=== PATIENT | female | born 2005 | race Caucasian/White ===

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

== ENCOUNTER 2024-03-15 08:36 | Emergency (ER) | payer MEDICAID, SELFPAY ==
[2024-03-15 08:59] VITALS: BP 131/100; PULSE 85; RESP 20; TEMP 36.6; O2SAT 100; BMI 33.5
--- NOTE | 2024-03-15 09:02 | USR_ITS ---
PROCEDURE INFORMATION: Exam: US First Trimester, Transabdominal and US , Transvaginal Exam date and time: 03/15/2024 9:34 AM Age: 18 years old Clinical indication: Lmp or gestational age (in weeks): 6w 5d per US; Antepartum complications; Bleeding; ; Additional info: Threatened miscarriage LABS AND CLINICAL REPORTS: Gestational age (Established): 11 w 4 d Estimated due date (Established): 09/30/2024 TECHNIQUE: Imaging protocol: Real-time transabdominal obstetrical ultrasound of the maternal pelvis and a first trimester , less than 14 weeks 0 days, with image documentation. Transvaginal imaging was used for better evaluation of the fetus, adnexa, and/or cervix. COMPARISON: US gall bladder [id number] 05/09/2022 11:30 AM FINDINGS: GESTATION: Gestation: Yolk sac measures 2.5 mm. Single intrauterine gestational sac. Embryonic/ heart rate: 124 bpm Extra-embryonic membranes/Placenta: There is a small amount subchorionic bleed measuring 1 x 0.6 x 0.9 cm. Amniotic/Chorionic fluid: Amniotic and extra-amniotic fluid are normal for gestational age. BIOMETRY: Gestational age (AUA): 6 weeks and 5 days. [place] rump length (CRL): 0.82 cm. MATERNAL: Uterus: Unremarkable. Cervix: Cervical length measures 3.1 cm. Right ovary/adnexa: The right ovary measures 1.6 x 2.9 x 1.6 cm. Left ovary/adnexa: The left ovary measures 2.5 x 1.9 x 2.2 cm. There is a 1.7 x 1.8 x 1.4 left ovarian cyst. Intraperitoneal space: No intraperitoneal free fluid. US/US OB <=14 wk fetus w transvag IMPRESSION: 1. Small amount of subchorionic bleed. 2. Intrauterine gestational sac with documented heart rate of 124 bpm.
--- NOTE | 2024-03-15 09:02 | W.ED.GENADLT ---
HPI - General Adult General: Chief complaint: Vaginal Bleeding Stated complaint: Bleeding 11 weeks preg Time Seen by Provider: 03/15/24 08:42 Source: patient Mode of arrival: ambulatory Limitations: no limitations History of Present Illness: 18-year-old female states she is currently she states she is anywhere from 8 to 12 weeks is unsure of the dates she has not had an ultrasound. States she had some cramping last night and some minimal bleeding this morning she states it is more spotting denies passing any tissue or clots. She denies any fevers. This is her first . Associated symptoms: Deny chest pain, dyspnea, headache(s), nausea, rash or vomiting Related Data Previous Rx's Medication Instructions Recorded docosanol 10 % topical cream 1 applic topical DAILY PRN cold 05/14/23 (Abreva) sore #2 grams drospirenone 3 mg-ethinyl 1 tab PO DAILY #84 tabs 05/14/23 estradiol 0.02 mg tablet (ADRIANA (28)) methylphenidate HCl 36 mg 36 mg PO DAILY 30 days #30 tabs 05/14/23 tablet,extended release 24 hr sulfamethoxazole 800 1 tab PO BID #14 tabs 05/14/23 mg-trimethoprim 160 mg tablet (Bactrim DS) methocarbamol 750 mg tablet 750 mg PO Q6H PRN spasms #20 tabs 11/03/23 naproxen 500 mg tablet (Naprosyn) 500 mg PO BID PRN pain #20 tabs 11/03/23 Allergies Allergy/AdvReac Type Severity Reaction Status Date / Time amoxicillin Allergy nausea Verified 03/15/24 09:05 Penicillins Allergy nausea Verified 03/15/24 09:05 Review of Systems Const: Denies: fever(s), chills, body aches or change in appetite ENMT: Denies: throat pain or dental pain Card: Denies: chest pain Resp: Denies: dyspnea GI: Reports: abdominal pain; Denies: nausea, vomiting or diarrhea : Reports: vaginal bleeding; Denies: dysuria Musc: Denies: neck pain or back pain Skin/Breast: Denies: rash Neuro: Denies: headache(s) PFSH ED PFSH: Medical History No pertinent family history Surgical History No pertinent past surgical history Social History Smoking and tobacco/nicotine status: never used tobacco/nicotine Second hand smoke exposure: No Alcohol intake: never Substance/Drug Use: never Adopted: No Caregiver/support person: No service: No Current occupational status: employed Current occupational exposures/hazards: No Sexually active: No Do you think of yourself as: Straight/Heterosexual Current gender identity: Female Female Reproductive History: Spontaneous abortions: No Physical Exam Const: COMMON NORMALS: no acute distress, patient oriented x3 and healthy appearing HENMT: COMMON NORMALS: normocephalic and atraumatic HEAD & SCALP: normocephalic and atraumatic Neck/C-Spine: COMMON NORMALS: full ROM and supple Chest: COMMONS NORMALS: normal inspection of the chest Resp: COMMON NORMALS: normal respiratory effort Cardio: COMMON NORMALS: regular rate, regular rhythm and No murmurs present (Cardio) RATE: regular rate RHYTHM: regular rhythm GI: COMMON NORMALS: Normal to inspection, nondistended, normoactive bowel sounds present, Soft to palpation, non-tender and no masses PALPATION: Yes Soft to palpation Extremity: COMMON NORMALS: normal to inspection and full ROM Neuro: COMMON NORMALS: patient oriented x3, moves all extremities and no focal motor deficits Psych: COMMON NORMALS: mental status grossly normal, Normal thought process present and cooperative THOUGHT PROCESS: Normal thought process present Skin: COMMON NORMALS: no rashes or lesions noted and no wounds GENERAL SKIN EXAM: no rashes or lesions noted Course Vital Signs: Vital signs: Vital Signs Temperature 97.8 F 03/15/24 08:59 Pulse Rate 85 03/15/24 08:59 Respiratory Rate 20 H 03/15/24 08:59 Blood Pressure 131/100 03/15/24 08:59 Pulse Oximetry 100 03/15/24 08:59 Oxygen Delivery Me thod Room Air 03/15/24 08:59 [facility] [place] - General Adult Medical Decision Making Patient presents here with a threatened miscarriage ultrasound did show an IUP she is well-appearing here she stable for discharge she is follow-up with OB next week return if worsening. Medical Records I reviewed the patient's medical records. Lab Data I reviewed the patient's lab results. 03/15/24 09:46 Radiology Impressions Obstetrics Ultrasound 03/15/24 09:02 IMPRESSION: 1. Small amount of subchorionic bleed. 2. Intrauterine gestational sac with documented heart rate of 124 bpm. Laboratory Results WBC 8.76 10^3/uL (4.5-13.0) 03/15/24 09:46 RBC 4.61 10^6/uL (3.85-5.65) 03/15/24 09:46 Hgb 13.20 g/dL (12.4-14.8) 03/15/24 09:46 Hct 40.1 % (36-47) 03/15/24 09:46 MCV 87.0 fl (85-98) 03/15/24 09:46 MCH 28.6 pg (27-33) 03/15/24 09:46 MCHC 32.9 g/dL (30-55) 03/15/24 09:46 RDW 13.5 % (12.1-15.1) 03/15/24 09:46 Plt Count 311 10^3/cmm (157-399) 03/15/24 09:46 MPV 10.3 fL (7.4-10.4) 03/15/24 09:46 Neut % (Auto) 72.7 % 03/15/24 09:46 Lymph % (Auto) 20.0 % 03/15/24 09:46 [place] % (Auto) 6.3 % 03/15/24 09:46 Eos % (Auto) 0.1 % 03/15/24 09:46 Baso % (Auto) 0.6 % 03/15/24 09:46 Neut # (Auto) 6.37 10^3/uL (1.8-8.0) 03/15/24 09:46 Lymph # (Auto) 1.8 10^3/uL (1.5-6.5) 03/15/24 09:46 [place] # (Auto) 0.6 10^3/uL (0.2-0.9) 03/15/24 09:46 Eos # (Auto) 0.0 10^3/uL (0.0-0.8) 03/15/24 09:46 Baso # (Auto) 0.1 10^3/uL (0.0-0.1) 03/15/24 09:46 Nucleated RBC % (auto) 0 % 03/15/24 09:46 Nucleated RBCs # 0.0 /100WBC 03/15/24 09:46 Ser , Semi-Qnt 81072.00 mIU/mL 03/15/24 09:46 Blood Type B Positive 03/15/24 09:46 Rho(D) Type Rh positive 03/15/24 09:46 All radiology interpretation(s) finalized by discharge Discharge Plan Discharge Patient Disposition: Home Clinical Impression: Threatened miscarriage Condition: Stable Prescriptions: No Action methylphenidate HCl 36 mg tablet extended release 24hr 36 mg PO DAILY 30 Days Qty: 30 0RF drospirenone-ethinyl estradiol [ADRIANA (28)] 3-0.02 mg tablet 1 tab PO DAILY Qty: 84 3RF docosanol [Abreva] 10 % cream 1 applic topical DAILY PRN (Reason: cold sore) Qty: 2 5RF Rx Instructions: Apply small amount to cold sore prior to bed. Use one time daily until cleared. sulfamethoxazole-trimethoprim [Bactrim DS] 800-160 mg tablet 1 tab PO BID Qty: 14 0RF methocarbamol 750 mg tablet 750 mg PO Q6H PRN (Reason: spasms) Qty: 20 0RF Naprosyn 500 mg tablet 500 mg PO BID PRN (Reason: pain) Qty: 20 0RF Discharge Orders: Discharge ED (Routine); Ordered 03/15/24 Ordered By: Jai Frias Referrals: Marilu Diaz MD [Primary Care Provider] - 4-7 days Discharge Diet: Advance as tolerated Discharge Activity: Resume usual activity Patient Instructions: Threatened Miscarriage (ED) Coding Level of Care Code ED Dean for Boom Holland
[2024-03-15 09:54] LABS: Basophils # 0.1 10^3/uL (0.0-0.1); Basophils % 0.6 %; Eosinophils % 0.1 %; Hematocrit 40.1 % (36-47); Lymphocytes # 1.8 10^3/uL (1.5-6.5); Mean Corpuscular HGB Conc 32.9 g/dL (30-55); Mean Corpuscular Hemoglobin 28.6 pg (27-33); Mean Platelet Volume 10.3 fL (7.4-10.4); Monocytes # 0.6 10^3/uL (0.2-0.9); Monocytes % 6.3 %; Neutrophils # 6.37 10^3/uL (1.8-8.0); Neutrophils % 72.7 %; Nucleated Red Blood Cells % 0 %; Platelet Count 311 10^3/cmm (157-399); Red Blood Count 4.61 10^6/uL (3.85-5.65); Red Cell Distribution Width 13.5 % (12.1-15.1); White Blood Count 8.76 10^3/uL (4.5-13.0)
== END 2024-03-15 10:58 | disposition home or self-care (01) ==
PROVIDERS: Emergency Provider Emergency Medicine; PCP Family Medicine
DX: O20.0 Threatened abortion (principal); Z3A.01 Less than 8 weeks gestation of pregnancy
CPT/HCPCS: 36415; 76801; 76817; 84702; 85025; 86850; 86900; 99284

== ENCOUNTER 2024-09-09 20:05 | Outpatient (CLI) | payer MEDICAID, SELFPAY ==
[2024-09-09 20:05] VITALS: BMI 33.2
[2024-09-09 20:21] VITALS: BP 115/63; PULSE 118; TEMP 36.1
[2024-09-09 20:36] VITALS: BP 114/71; PULSE 105
[2024-09-09 20:48] VITALS: TEMP 36.1
[2024-09-09 20:49] VITALS: BP 128/67; PULSE 90
[2024-09-09 20:59] VITALS: BP 128/67; PULSE 90; RESP 16; TEMP 36.1; O2SAT 100
== END 2024-09-09 20:59 | disposition home or self-care (01) ==
LOC: OPOB 20:12 → OBGYN 20:14
PROVIDERS: Visit Provider Family Medicine
DX: O26.899 Other specified pregnancy related conditions, unspecified trimester (principal); Z3A.00 Weeks of gestation of pregnancy not specified; Z91.81 History of falling
CPT/HCPCS: 59025; 99211

== ENCOUNTER 2024-10-06 20:10 | Outpatient (CLI) | payer MEDICAID, SELFPAY ==
[2024-10-06 20:10] VITALS: BMI 34.8
[2024-10-06 20:37] VITALS: BP 126/71; PULSE 85
[2024-10-06 20:52] VITALS: BP 133/64; PULSE 80
[2024-10-06 21:07] VITALS: BP 130/80; PULSE 86
[2024-10-06 21:22] VITALS: BP 115/78; PULSE 90
[2024-10-06 21:25] VITALS: BP 126/74; PULSE 82; TEMP 36.6; O2SAT 99
[2024-10-06 21:33] VITALS: BP 126/74; PULSE 82
== END 2024-10-06 21:40 | disposition home or self-care (01) ==
LOC: OPOB 20:23 → OBGYN 20:24
PROVIDERS: PCP Family Medicine; Visit Provider Family Medicine
DX: O26.899 Other specified pregnancy related conditions, unspecified trimester (principal); Z3A.00 Weeks of gestation of pregnancy not specified; Z91.81 History of falling
CPT/HCPCS: 59025; 99211

== ENCOUNTER 2024-10-20 11:40 | Outpatient (CLI) | payer MEDICAID, SELFPAY ==
[2024-10-20 11:48] VITALS: BMI 35.6
[2024-10-20 12:15] LABS: Basophils % 0.3 %; Eosinophils % 0.2 %; Hematocrit 31.5 % (36-47); Lymphocytes # 1.9 10^3/uL (1.5-6.5); Mean Corpuscular HGB Conc 32.7 g/dL (30-55); Mean Corpuscular Hemoglobin 26.8 pg (27-33); Mean Corpuscular Volume 81.8 fl (85-98); Mean Platelet Volume 11.2 fL (7.4-10.4); Monocytes # 0.7 10^3/uL (0.2-0.9); Monocytes % 7.3 %; Neutrophils # 7.16 10^3/uL (1.8-8.0); Neutrophils % 72.1 %; Nucleated Red Blood Cells % 0 %; Platelet Count 272 10^3/cmm (157-399); Red Blood Count 3.85 10^6/uL (3.85-5.65); Red Cell Distribution Width 13.4 % (12.1-15.1); White Blood Count 9.93 10^3/uL (4.5-13.0)
[2024-10-20 12:17] LABS: Bilirubin Urine Negative (Negative); Blood Urine Negative (Negative); Glucose Urine UA Negative (Normal); Ketones Urine Negative (Negative); Leukocyte Esterase Urine Trace (Negative); Nitrate Urine Negative (Negative); Protein Urine Negative (Negative); Specific Gravity, Urine 1.015 (1.005-1.030); Urine Appearance Cloudy (CLEAR); Urine Color Yellow (Yellow); pH Urine 6.5 (5-7)
[2024-10-20 12:18] VITALS: BP 139/80; PULSE 72
[2024-10-20 12:19] LABS: Add Urine Microscopic? YES; Bacteria Urine 2+ /hpf; Hyaline Casts Urine 0.81 /lpf; RBC Urine 0-2 /hpf (0-2)
[2024-10-20 12:33] LABS: Add Urine Culture? No
[2024-10-20 12:34] VITALS: BP 136/80; PULSE 76
[2024-10-20 12:36] LABS: Urine Creatinine 138 mg/dL (28-217); Urine Protein Random 14 mg/dL
[2024-10-20 12:44] LABS: Alanine Aminotransferase < 5 U/L (0-33); Albumin Level 3.4 g/dL (3.5-5.2); Alkaline Phosphatase 189 U/L (35-105); Aspartate Amino Transferase 12 U/L (0-32); Blood Urea Nitrogen 6 mg/dL (6-20); Calcium 8.9 mg/dL (8.5-10.5); Carbon Dioxide 20 mmol/L (22-29); Chloride 104 mmol/L (98-107); Globulin 3.3 g/dL (1.3-4.6); Glomerular Filtration Rate 158.9 mL/min (90-130); Glucose 81 mg/dL (65-115); Osmolality Calculated 277 mOsm/kg (285-295); Sodium 135 mmol/L (136-145); Total Bilirubin 0.2 mg/dL (0.15-1.2); Total Protein 6.7 g/dL (6.6-8.7); Uric Acid 5.1 mg/dL (2.4-5.7)
[2024-10-20 12:48] VITALS: BP 129/75; PULSE 74
[2024-10-20 13:03] VITALS: BP 130/76; PULSE 74
[2024-10-20 13:18] VITALS: BP 134/79; PULSE 78
[2024-10-20 13:30] VITALS: BP 134/79; PULSE 78; RESP 17
== END 2024-10-20 13:30 | disposition home or self-care (01) ==
LOC: OPOB 11:44 → OBGYN 11:45
PROVIDERS: PCP Family Medicine; Visit Provider Family Medicine
DX: O26.899 Other specified pregnancy related conditions, unspecified trimester (principal); Z3A.00 Weeks of gestation of pregnancy not specified
CPT/HCPCS: 36415; 59025; 80053; 81001; 82570; 84156; 84550; 85025; 99211

== ENCOUNTER 2024-11-03 09:45 | Inpatient (IN) | payer MEDICAID, SELFPAY ==
[2024-11-03] VITALS (75 sets, daily range): BP systolic 106–175; BP diastolic 53–99; PULSE 58–114; RESP 15; O2SAT 97–100; BMI 35.6
[2024-11-03 10:36] LABS: Basophils % 0.4 %; Eosinophils % 0.1 %; Hematocrit 32.4 % (36-47); Lymphocytes # 1.8 10^3/uL (1.5-6.5); Lymphocytes % 16.1 %; Mean Corpuscular HGB Conc 32.4 g/dL (30-55); Mean Corpuscular Hemoglobin 26.1 pg (27-33); Mean Corpuscular Volume 80.6 fl (85-98); Mean Platelet Volume 11.7 fL (7.4-10.4); Monocytes # 0.8 10^3/uL (0.2-0.9); Monocytes % 6.9 %; Neutrophils # 8.35 10^3/uL (1.8-8.0); Neutrophils % 75.3 %; Nucleated Red Blood Cells % 0 %; Platelet Count 306 10^3/cmm (157-399); Red Blood Count 4.02 10^6/uL (3.85-5.65); Red Cell Distribution Width 13.8 % (12.1-15.1); White Blood Count 11.09 10^3/uL (4.5-13.0)
[2024-11-03 10:44] LABS: Bacteria Urine 1+ /hpf; Hyaline Casts Urine 0-4 /lpf; RBC Urine 0-2 /hpf (0-2)
[2024-11-03 10:46] LABS: Add Urine Microscopic? YES; Blood Urine Neg (Negative); Glucose Urine UA Norm (Normal); Ketones Urine Negative (Negative); Nitrate Urine Negative (Negative); Protein Urine Trace (Negative); Urine Appearance Clear (CLEAR); Urine Color Yellow (Yellow); pH Urine 7 (5-7)
[2024-11-03 10:47] LABS: Add Urine Culture? No; Bilirubin Urine Neg (Negative); Leukocyte Esterase Urine Negative (Negative); Urobilinogen Urine Neg (Negative)
[2024-11-03 10:52] LABS: Alanine Aminotransferase 6 U/L (0-33); Albumin Level 3.4 g/dL (3.5-5.2); Alkaline Phosphatase 199 U/L (35-105); Aspartate Amino Transferase 13 U/L (0-32); Blood Urea Nitrogen 7 mg/dL (6-20); Calcium 9.4 mg/dL (8.5-10.5); Carbon Dioxide 21 mmol/L (22-29); Chloride 106 mmol/L (98-107); Globulin 3.1 g/dL (1.3-4.6); Glomerular Filtration Rate 128.8 mL/min (90-130); Glucose 86 mg/dL (65-115); Osmolality Calculated 281 mOsm/kg (285-295); Sodium 137 mmol/L (136-145); Total Bilirubin 0.2 mg/dL (0.15-1.2); Total Protein 6.5 g/dL (6.6-8.7); Uric Acid 5.9 mg/dL (2.4-5.7)
[2024-11-03 11:11] LABS: Urine Creatinine 111 mg/dL (28-217)
[2024-11-03 11:12] LABS: UPRO/UCREAT Ratio 0.23 mg/mg CR; Urine Protein Random 25 mg/dL
[2024-11-03] MEDS: dextrose 5%-lactated ringers 1,000 ML 125 ML IV ×2 (11:48→20:17)
[2024-11-03] MEDS: oxytocin 30 UNIT/500 ML BAG IV (11:48)
[2024-11-03 13:13] LABS: Amphetamines Screen Urine Negative (Negative); Barbiturates Screen Urine Negative (Negative); Benzodiazepines Screen Urine Negative (Negative); Cocaine Screen Urine Negative (Negative); Opiate Screen Urine Negative (Negative); PCP Screen Urine Negative (Negative); THC Screen Urine Positive (Negative)
[2024-11-03] MEDS: fentaNYL 50 mcg/mL INJ 2mL IVP (13:54)
[2024-11-03] MEDS: sodium chloride 0.9% 1,000 ML 999 ML IV (14:05)
[2024-11-03] MEDS: ROPivacaine syringe 100 MG/50 ML SYRINGE 10 MG EPIDURAL ×2 (15:15→17:30)
--- NOTE | 2024-11-03 15:32 | ANES.PREANE2 ---
Pre-Anesthetic Assessment Height/Weight: Height 5 ft 6 in Weight 221 lb Pulse Resp BP Pulse Ox O2 Del Method 85 15 155/73 99 Room Air 11/03/24 15:24 11/03/24 13:54 11/03/24 15:24 11/03/24 15:09 11/03/24 10:28 Preop Diagnosis: IUP Was Beta Belinda taken within 24 hours: N/A Was Clonidine taken within 24 hours: N/A Social No alcohol and No tobacco Exam alert, oriented x 3, clear to auscultation bilaterally and regular rate & rhythm Airway Submandibular: within normal limits Cervical ROM: within normal limits Mallampati: Class II Dentition: full Anesthetic Plan ASA status: 2 Anesthesia: Regional (specify below) Other: G1, P0 here for labor Hypertension during Labs reviewed and supple for procedure Denies any cardiac issues Plan for routine epidural placement Medications/Allergies Home Medications ?Medication ?Instructions ?Recorded ?Confirmed ?Last Taken ?Type No Known Home Medications 10/20/24 10/20/24 Unknown History Allergies Allergy/AdvReac Type Severity Reaction Status Date / Time amoxicillin Allergy nausea Verified 03/15/24 09:05 Penicillins Allergy nausea Verified 03/15/24 09:05 Current Medications Generic Name Dose Route Start Last Admin Trade Name Freq PRN Reason Stop Dose Admin Fentanyl 25 - 100 mcg 11/03/24 13:05 11/03/24 13:54 Fentanyl 50 Mcg/Ml Inj 2ml IVP 25 mcg Q1H PRN Administration SEVERE PAIN Dextrose/Lactated Ringer's 1,000 mls @ 125 mls/hr 11/03/24 10:30 11/03/24 11:48 Dextrose 5%-Lactated Ringers IV 125 mls/hr .Q8H AMA Administration Oxytocin 30 unit in 500 mls @ 1 mls/hr 11/03/24 11:30 11/03/24 11:48 Pitocin IV 1 milliunit/min .Q24H AMA 1 mls/hr Administration Protocol 1 MILLIUNIT/MIN Sodium Chloride 1,000 mls @ 999 mls/hr 11/03/24 13:40 11/03/24 14:05 Sodium Chloride 0.9% IV 999 mls/hr .Q1H1M PRN Administration See label comments PFSH Anesthesia Medical History No pertinent family history Surgical History No pertinent past surgical history Social History Smoking and tobacco/nicotine status: never used tobacco/nicotine Second hand smoke exposure: No Alcohol intake: never Substance/Drug Use: never Adopted: No Caregiver/support person: No service: No Current occupational status: employed Current occupational exposures/hazards: No Sexually active: No Do you think of yourself as: Straight/Heterosexual Current gender identity: Female Female Reproductive History : 1 Spontaneous abortions: No Data Anesthesia 11/03/24 10:14 11/03/24 10:14 Short CBC 11/03/24 Range/Units 10:14 WBC 11.09 (4.5-13.0) 10^3/uL Hgb 10.50 L (12.4-14.8) g/dL Hct 32.4 L (36-47) % MCV 80.6 L (85-98) fl Plt Count 306 (157-399) 10^3/cmm Neut % (Auto) 75.3 % Neut # (Auto) 8.35 H (1.8-8.0) 10^3/uL BMP 11/03/24 10:14 Sodium 137 Potassium 4.0 Chloride 106 Carbon Dioxide 21 L BUN 7 Creatinine 0.6 Glucose 86 Calcium 9.4 Liver Function 11/03/24 Range/Units 10:14 Total Bilirubin 0.2 (0.15-1.2) mg/dL AST 13 (0-32) U/L ALT 6 (0-33) U/L Alkaline Phosphatase 199 H (35-105) U/L Albumin 3.4 L (3.5-5.2) g/dL Urine 11/03/24 Range/Units 10:14 Urine Color Yellow (Yellow) Urine Appearance Clear (CLEAR) Urine pH 7 (5-7) Ur Specific [place] 1.010 (1.005-1.030) Urine Protein Trace (Negative) Urine Glucose (UA) Norm (Normal) Urine Ketones Negative (Negative) Urine Nitrate Negative (Negative) Urine Bilirubin Neg (Negative) Ur Leukocyte Esterase Negative (Negative) Urine RBC 0-2 (0-2) /hpf Urine WBC 11-20 H (0-5) /hpf Blood Bank 11/03/24 10:14 Blood Type B Positive Rho(D) Type Rh positive Antibody Screen Negative Cardiac Studies: No Data to Display
--- NOTE | 2024-11-03 15:33 | ANES.PROC ---
Anesthesia Procedures Procedure/Date: 11/03/24 Epidural: Time Out Performed: Yes Consents Signed: Procedure Consent and NPO Consent Consent: requested by attending/covering physician and from patient Lumbar Level: L2-L3 Epidural position: sitting Epidural procedure: sterile prep of area, 1% lidocaine to numb the area, 18 g needle, negative for paresthesia passed, neg for paresthesia, test dose given, 1.5% xylocaine 1:200k epi, 0.2% Ropivacaine bolus ml, placed PCEA, no systemic response, sterile dressing applied and L.U.D. no apparent complications Additional Comments: Primo Bravo initially attempted to place epidural at L3-L4. Upon threading catheter, blood was returned when aspirated. Catheter was removed and we went up another level. I took over procedure and got false loss at L3-L4. CSE was performed at L2-L3. Once cc of 0.25% bupivacaine was injected in the intrathecal space. Spinal needle was removed. Epidural catheter was placed at 13 cm to the skin
--- NOTE | 2024-11-03 16:51 | PM.OPHPUD ---
Labor & Delivery H&P Update Date of Procedure: November 03, 2024 Date H&P Performed: 11/03/24 Admission Diagnosis: New onset gestational hypertension IUP at 40 weeks 1 day gestation Primary indication for procedure: Severely elevated blood pressures Planned procedure: Induction of labor and delivery Other information: This is a 18-year-old G1, P0 at 40 weeks 1 day gestation who presented to clinic for routine follow-up. She was found to have severely elevated blood pressures in clinic 168/98 and 160/100. She was sent to labor and delivery for PIH labs and further management. Her urine protein creatinine ratio was not indicative of proteinuria and most of her blood pressures on labor and delivery were more in the mildly elevated range. She was favorable for induction and was started on Pitocin.
[2024-11-03] MEDS: labetalol 5 mg/mL SDV 20mL 20 MG IVP (16:52)
[2024-11-03] MEDS: ondansetron 2 mg/ML SDV 2 mL 4 MG IVP (16:52)
--- NOTE | 2024-11-03 17:53 | ANES.PROC ---
Anesthesia Procedures Procedure/Date: 11/03/24 Epidural: Time Out Performed: Yes Consents Signed: No Consent Needed (Replaced epidural, prior consent obtained. ) Consent: from patient, risks and benefits reviewed and patient agrees to proceed Lumbar Level: L4-L5 Epidural position: sitting Epidural procedure: sterile prep of area, 1% lidocaine to numb the area, 18 g needle, negative for paresthesia passed, neg for paresthesia, test dose given (4mL), 1.5% xylocaine 1:200k epi, no systemic response, sterile dressing applied, L.U.D. no apparent complications and 0.2% Ropiavacaine @ mls/hr (6) Additional Comments: Existing epidural left sided, attempted 7mL bolus of 0.25% bupivacaine with no improvement, epidural replace one level lower RYAN at 5.5cm cather at 12cm
--- NOTE | 2024-11-03 18:13 | PC.NURSE ---
VENEER SPLICER removed epidural catheter @[id number] on 11/03/24
[2024-11-03] MEDS: ROPivacaine syringe 100 MG/50 ML SYRINGE 6 MG EPIDURAL ×2 (21:11→23:44)
[2024-11-04] VITALS (41 sets, daily range): BP systolic 116–158; BP diastolic 61–102; PULSE 68–159; RESP 16–17; TEMP 36.7–37.2; O2SAT 94–99
[2024-11-04] MEDS: dextrose 5%-lactated ringers 1,000 ML 125 ML IV (04:47)
[2024-11-04] MEDS: ROPivacaine syringe 100 MG/50 ML SYRINGE 6 MG EPIDURAL (05:23)
--- NOTE | 2024-11-04 08:26 | P.PCNOB_ITS ---
Delivery Note: Date of delivery: November 04, 2024 Pre-delivery diagnoses: IUP at 40 weeks 2 days gestation Gestational hypertension with severe pressures Post-delivery diagnoses: IUP at 40 weeks 2 days gestation Gestational hypertension Shoulder dystocia, 30 sec Pre-Delivery Course: The patient had routine care at [facility]. There were no complications during the until the day of induction diagnosis of severe gestational hypertension. labs blood type B+ antibody negative, hepatitis B nonreactive, hepatitis C nonreactive, HIV nonreactive, rubella immune, GC chlamydia negative, RPR nonreactive, UDS positive for marijuana, she passed her glucose tolerance test, she was GBS negative Delivery: This is a 19-year-old G1, P0 at 40 weeks 1 day gestation who was admitted for induction secondary to gestational hypertension with severe blood pressures. When she was on labor and delivery her blood pressures were only mildly elevated and she did not require antihypertensives. Her PIH labs were not indicative of any significant proteinuria. Her cervix was favorable so she was started on Pitocin. She received an epidural for pain management. Unfortunately we had many difficulties with her epidural and she had it replaced. Her second epidural seem to work better however she seemed to be sensitive to pressure sensation. She had spontaneous rupture of membranes with clear fluid at first but later underwent artificial rupture of a forebag with meconium stained fluid. Rupture of membranes was approximately 15 hours prior to delivery. She had to push for about an hour and a half before having a normal spontaneous vaginal delivery of a viable female weight 9 pounds 9 ounces Apgars 5 8 and 9 over an intact perineum. Upon delivery of the infant's head there was a nuchal cord x 2 that was loose and easily reduced. There was also a shoulder dystocia that lasted about 30 seconds and resolved with Aide maneuver. Mother did not seem to be pushing well after delivery of the head and even after the shoulder was released it took a few seconds to get the rest of the body delivered. The was floppy at delivery. The cord was immediately clamped and cut and the was taken to the warmer. The placenta was delivered grossly intact and normal to inspection but definitely meconium stained. There was a second-degree right vaginal laceration that was sutured using 3-0 chromic. Mother was doing well after delivery. The had a little bit of grunting but was saturating well on room air. She was taken to the nursery for further evaluation. A&P Assessment and plan (1) Normal spontaneous vaginal delivery: PDMP PDMP Reviewed: Not Reviewed Coding Level of Care Code Acute Code for Chg Fwd Diagnoses Normal spontaneous vaginal delivery O80
[2024-11-04] MEDS: lanolin oint 7 gm 1 APPLIC TOPICAL (09:22)
[2024-11-04] MEDS: ibuprofen 800 mg tablet PO ×3 (09:23→21:27)
[2024-11-04] MEDS: benzocaine-menthol 78 gm Canister 1 SPRAY TOPICAL (09:23)
[2024-11-04] MEDS: PRENATAL VIT NO.130/IRON/FOLIC 1 EACH TABLET PO (09:23)
[2024-11-04] MEDS: docusate sodium 100 mg Capsule PO (09:23)
--- NOTE | 2024-11-04 10:44 | PC.NURSE ---
Pt up to bathroom without difficulty. Unable to void at this time, not feeling like she needs to. Thu care done by pt, dermoplast used. Pad and gown changed. Pt then ambulated to nursery to see baby, then to OB7 for routine post stay. Oriented to room/call light. Proud parent pack discussed.
[2024-11-04 22:31] LABS: Hematocrit 23.7 % (36-47); Mean Corpuscular HGB Conc 32.5 g/dL (30-55); Mean Corpuscular Hemoglobin 26.6 pg (27-33); Mean Platelet Volume 11.3 fL (7.4-10.4); Platelet Count 229 10^3/cmm (157-399); Red Blood Count 2.89 10^6/uL (3.85-5.65); Red Cell Distribution Width 14.3 % (12.1-15.1)
[2024-11-05 04:50] VITALS: BP 124/72; PULSE 92; RESP 16
[2024-11-05] MEDS: docusate sodium 100 mg Capsule PO (08:39)
[2024-11-05] MEDS: PRENATAL VIT NO.130/IRON/FOLIC 1 EACH TABLET PO (08:39)
[2024-11-05] MEDS: ibuprofen 800 mg tablet PO ×2 (08:39→15:32)
[2024-11-05 08:46] VITALS: BP 132/84; PULSE 66; RESP 16; TEMP 36.5; O2SAT 97
--- NOTE | 2024-11-05 15:43 | ANE.PACU2 ---
Inpatient post-anesthesia follow up: Airway intact: Yes Vital signs: Temperature 97.7 F Pulse Rate 66 Respiratory Rate 16 Blood Pressure 132/84 Pulse Oximetry 97 Oxygen Delivery Me thod Room Air Oxygen Flow Rate Fraction of Inspir ed Oxygen Hydration adequate: Yes Nausea and vomiting: No Pain level: 2 Mental status: Baseline Epidural Start/End: Epidural Start Date: 11/03/24 Epidural Start Time: 14:38 Epidural End Date: 11/04/24 Epidural End Time: 11:21
[2024-11-05 15:50] VITALS: BP 124/76; PULSE 86; RESP 16; TEMP 36.6; O2SAT 98
--- NOTE | 2024-11-05 16:21 | PM.DCS ---
Discharge Providers Date of Admission: 11/03/24 09:45 Date of Discharge: November 05, 2024 Attending Provider at Admission: Marilu Diaz MD Attending Provider at Discharge: Marilu Diaz MD Primary Care Provider: Marilu Diaz MD Diagnoses at Discharge Discharge Diagnosis (1) Normal spontaneous vaginal delivery: Status: Acute Reason for Visit Reason for Visit: IOL Hospital Course Hospital Course This is a 19-year-old G1 now P1 who was admitted for induction secondary to gestational hypertension. She had a normal spontaneous vaginal delivery of a viable female infant. She has done well . Her bleeding has lightened up significantly today. Her blood pressures after delivery have been within normal limits. She is being discharged home in stable condition Physical Exam Narrative: Alert and oriented, sitting up in bed watching TV, heart regular rate and rhythm, lungs clear to auscultation bilaterally, abdomen is soft and nontender, fundus is firm, extremities have 1+ edema but no calf tenderness Urinary Catheter Management: Flores Latex: Cath Placed During This Visit: yes, but has since been removed by the nurse Reason for Continuing Indwelling Catheter: Decision to DC Catheter Urinary Catheter Date of Insertion: 11/03/24 Urinary Catheter Time of Insertion: 16:40 Date Urinary Catheter Removed: 11/04/24 Time Urinary Catheter Discontinued: 06:28 Discharge Data Studies Completed and Pending Laboratory Results WBC 16.80 10^3/uL (4.5-13.0) H 11/04/24 22:21 RBC 2.89 10^6/uL (3.85-5.65) L 11/04/24 22:21 Hgb 7.70 g/dL (12.4-14.8) L 11/04/24 22:21 Hct 23.7 % (36-47) L 11/04/24 22:21 MCV 82.0 fl (85-98) L 11/04/24 22:21 MCH 26.6 pg (27-33) L 11/04/24 22:21 MCHC 32.5 g/dL (30-55) 11/04/24 22:21 RDW 14.3 % (12.1-15.1) 11/04/24 22:21 Plt Count 229 10^3/cmm (157-399) 11/04/24 22:21 MPV 11.3 fL (7.4-10.4) H 11/04/24 22:21 Neut % (Auto) 75.3 % 11/03/24 10:14 Lymph % (Auto) 16.1 % 11/03/24 10:14 [place] % (Auto) 6.9 % 11/03/24 10:14 Eos % (Auto) 0.1 % 11/03/24 10:14 Baso % (Auto) 0.4 % 11/03/24 10:14 Neut # (Auto) 8.35 10^3/uL (1.8-8.0) H 11/03/24 10:14 Lymph # (Auto) 1.8 10^3/uL (1.5-6.5) 11/03/24 10:14 [place] # (Auto) 0.8 10^3/uL (0.2-0.9) 11/03/24 10:14 Eos # (Auto) 0.0 10^3/uL (0.0-0.8) 11/03/24 10:14 Baso # (Auto) 0.0 10^3/uL (0.0-0.1) 11/03/24 10:14 Nucleated RBC % (auto) 0 % 11/03/24 10:14 Nucleated RBCs # 0.0 /100WBC 11/03/24 10:14 Sodium 137 mmol/L (136-145) 11/03/24 10:14 Potassium 4.0 mmol/L (3.5-5.1) 11/03/24 10:14 Chloride 106 mmol/L (98-107) 11/03/24 10:14 Carbon Dioxide 21 mmol/L (22-29) L 11/03/24 10:14 Anion Gap 14.0 (5-19) 11/03/24 10:14 BUN 7 mg/dL (6-20) 11/03/24 10:14 Creatinine 0.6 mg/dL (0.5-0.9) 11/03/24 10:14 GFR Calculation 128.8 mL/min (90-130) 11/03/24 10:14 Glucose 86 mg/dL (65-115) 11/03/24 10:14 Calculated Osmolality 281 mOsm/kg (285-295) L 11/03/24 10:14 Uric Acid 5.9 mg/dL (2.4-5.7) H 11/03/24 10:14 Calcium 9.4 mg/dL (8.5-10.5) 11/03/24 10:14 Total Bilirubin 0.2 mg/dL (0.15-1.2) 11/03/24 10:14 AST 13 U/L (0-32) 11/03/24 10:14 ALT 6 U/L (0-33) 11/03/24 10:14 Alkaline Phosphatase 199 U/L (35-105) H 11/03/24 10:14 Total Protein 6.5 g/dL (6.6-8.7) L 11/03/24 10:14 Albumin 3.4 g/dL (3.5-5.2) L 11/03/24 10:14 Globulin 3.1 g/dL (1.3-4.6) 11/03/24 10:14 Urine Color Yellow (Yellow) 11/03/24 10:14 Urine Appearance Clear (CLEAR) 11/03/24 10:14 Urine pH 7 (5-7) 11/03/24 10:14 Ur Specific [place] 1.010 (1.005-1.030) 11/03/24 10:14 Urine Protein Trace (Negative) 11/03/24 10:14 Urine Glucose (UA) Norm (Normal) 11/03/24 10:14 Urine Ketones Negative (Negative) 11/03/24 10:14 Urine Blood Neg (Negative) 11/03/24 10:14 Urine Nitrate Negative (Negative) 11/03/24 10:14 Urine Bilirubin Neg (Negative) 11/03/24 10:14 Urine Urobilinogen Neg mg/dL (Negative) 11/03/24 10:14 Ur Leukocyte Esterase Negative (Negative) 11/03/24 10:14 Urine RBC 0-2 /hpf (0-2) 11/03/24 10:14 Urine WBC 11-20 /hpf (0-5) H 11/03/24 10:14 Ur Squamous Epith Cells 11-20 /hpf (0-5) H 11/03/24 10:14 Amorphous Sediment Not Reportable 11/03/24 10:14 Urine Bacteria 1+ /hpf (NONE) H 11/03/24 10:14 Hyaline Casts 0-4 /lpf H 11/03/24 10:14 U Random Total Protein 25 mg/dL 11/03/24 10:14 Urine Creatinine 111 mg/dL (28-217) 11/03/24 10:14 Protein/Creatinin Ratio 0.23 mg/mg CR 11/03/24 10:14 Urine Opiates Screen Negative ng/mL (Negative) 11/03/24 10:14 Ur Barbiturates Screen Negative ng/mL (Negative) 11/03/24 10:14 Ur Phencyclidine Scrn Negative ng/mL (Negative) 11/03/24 10:14 Ur Amphetamines Screen Negative ng/mL (Negative) 11/03/24 10:14 U Benzodiazepines Scrn Negative ng/mL (Negative) 11/03/24 10:14 Urine Cocaine Screen Negative ng/mL (Negative) 11/03/24 10:14 U Marijuana (THC) Screen Positive ng/mL (Negative) H 11/03/24 10:14 Blood Type B Positive 11/03/24 10:14 Rho(D) Type Rh positive 11/03/24 10:14 Antibody Screen Negative 11/03/24 10:14 Vitals Last Vital Signs Temp 97.9 F 11/05/24 15:50 Pulse 86 11/05/24 15:50 Resp 16 11/05/24 15:50 BP 124/76 11/05/24 15:50 Pulse Ox 98 11/05/24 15:50 O2 Del Method Room Air 11/05/24 15:50 Discharge Plan Discharge Patient Disposition: Home Condition: Stable Prescriptions: No Action No Known Home Medications Discharge Orders: Discharge Order (Routine); Ordered 11/05/24 Ordered By: Marilu Diaz Referrals: Marilu Diaz MD [Primary Care Provider] - 11/09/24 1:15 pm (apt for mom and baby together) Discharge Diet: Usual diet Discharge Activity: Limit activity as instructed Patient Instructions: Depression (DC), Opioid Safety (DC), Preeclampsia and Eclampsia After Delivery (GEN), Hemorrhage (DC), OB Discharge Report, OB Food/Drug Interaction Guide, OB Care at Home, Opioid Safety, OB Vaginal Deliveries, Abnormal Bleeding Activity Restrictions/Additional Instructions: Nothing per vagina for 6 weeks Discharge Attestations Time Spent in Discharge Care*: less than 30 min Quality Metrics Clinical Quality Measures [ No reported AMI, CVA or VTE this stay] Coding Level of Care Code Acute Code for Chg Fwd Diagnoses Normal spontaneous vaginal delivery O80
[2024-11-05 17:05] VITALS: BP 124/76; PULSE 86; RESP 16; TEMP 36.6; O2SAT 98
== END 2024-11-05 17:15 | disposition home or self-care (01) | DRG 807 ==
LOC: OBGYN 13:24
PROVIDERS: Admitting Provider Family Medicine; PCP Family Medicine; Visit Provider Family Medicine
DX: O13.4 Gestational [pregnancy-induced] hypertension without significant proteinuria, complicating childbirth (principal); Z37.0 Single live birth; O70.1 Second degree perineal laceration during delivery; O66.0 Obstructed labor due to shoulder dystocia; O48.0 Post-term pregnancy; Z3A.40 40 weeks gestation of pregnancy; O77.0 Labor and delivery complicated by meconium in amniotic fluid; O69.81X0 Labor and delivery complicated by cord around neck, without compression, not applicable or unspecified
CPT/HCPCS: 36415; 51702; 59025; 59409; 80053; 80306; 81001; 82570; 84156; 84550; 85025; 85027; 86850; 86900; 96374; 99211; J2405; J2590; J2795; J3010; J3490; J7030; J7121; J9999